=== PATIENT | male | born 1955 | race Caucasian/White ===

== ENCOUNTER 2023-03-03 10:09 | Day surgery (SDC) | payer MEDICARE ==
[~2023-03-03 10:09] MED LIST: LACTATED RINGERS 1,000 ML IV SCH
[2023-03-03 11:32] VITALS: TEMP 97.5
[2023-03-03] MEDS ORDERED: PROPOFOL 10 MG/ML 20 ML VIAL IV ONE (12:25)
--- NOTE | 2023-03-03 12:39 | P.PCN ---
Date of Procedure: 03/03/23 Procedure(s) Performed: BRIEF HISTORY: Patient is a 67-year-old pleasant white male scheduled for an elective colonoscopy as a part of screening for colon cancer. PROCEDURE PERFORMED: Colonoscopy with biopsy. PREOPERATIVE DIAGNOSIS: Screening for colon cancer. IV sedation per Anesthesia. PROCEDURE: After informed consent was obtained, the patient, was brought into the endoscopy unit. IV sedation was administered by Anesthesia under continuous monitoring. Digital rectal examination was normal. Initially the Olympus CF-160 flexible video colonoscope was then inserted in the rectum, gradually advanced into the cecum without any difficulty. Careful examination was performed as the scope was gradually being withdrawn. Ileocecal valve and the appendiceal orifice were visualized and appeared normal. Prep was excellent. Mucosa of the cecum, ascending colon, transverse colon, descending colon, sigmoid colon, and rectum appeared normal. The [place] rectum there were 3 mm and 4 mm polyp removed by cold biopsy scattered sigmoid diverticula cyst. Retroflexion was performed in the rectum and no lesions were seen. The patient tolerated the procedure well. IMPRESSION: 3 mm and 4 mm rectal polyp status post cold biopsy Rest of the colon appeared normal Scattered sigmoid diverticula cyst. RECOMMENDATIONS: Findings of this examination were discussed with the patient as well as his family.. He was advised to follow with the biopsyif the biopsy results adenoma he can have a repeat colonoscopy in 5 years
[2023-03-03 12:43] VITALS: RESP 16
[2023-03-03 12:59] VITALS: BP 121/78; PULSE 68
== END 2023-03-03 13:12 | disposition home or self-care (01) ==
LOC: ORWHC2ENDO 10:09
PROVIDERS: ATTEND Internal Medicine Gastroenterology
DX: Z12.11 Encounter for screening for malignant neoplasm of colon (principal); D12.8 Benign neoplasm of rectum; K57.30 Diverticulosis of large intestine without perforation or abscess without bleeding; I10 Essential (primary) hypertension; D86.9 Sarcoidosis, unspecified; Z79.811 Long term (current) use of aromatase inhibitors; Z79.899 Other long term (current) drug therapy
CPT/HCPCS: 88305; 45380; J2704

== ENCOUNTER 2024-05-31 05:45 | Day surgery (SDC) | payer MEDICARE ==
[2024-05-31] MEDS ORDERED: ALPRAZolam 0.5 MG TAB PO PRN (06:21)
[2024-05-31] MEDS ORDERED: NITROGLYCERIN SL TABS 0.4 MG TAB SUBLINGUAL PRN (06:21)
[2024-05-31] MEDS ORDERED: ALPRAZolam 0.25 MG TAB PO PRN (06:21)
[2024-05-31 06:37] VITALS: RESP 16; TEMP 97.8
[2024-05-31] MEDS: SODIUM CHLORIDE 0.9% 1,000 ML IV ONE (06:38)
[2024-05-31] MEDS: SODIUM CHLORIDE 0.9% 1,000 ML in EMPTY BAG 1 BAG IV SCH (06:39)
[2024-05-31 06:45] LABS: Basophils # (A) 0.1 k/uL (0-0.2); Basophils % (A) 1 %; Eosinophils # (A) 0.4 k/uL (0-0.7); Eosinophils % (A) 6 %; HCT 50.5 % (39.0-53.0); HGB 16.2 gm/dL (13.0-17.5); Lymphocytes # (A) 1.8 k/uL (1.0-4.8); Lymphocytes % (A) 29 %; MCH 29.5 pg (25.0-35.0); MCHC 32.1 g/dL (31.0-37.0); MCV 92.2 fL (80.0-100.0); Mean Platelet Volume 8.4; Monocytes # (A) 0.6 k/uL (0-1.0); Monocytes % (A) 9 %; Neutrophils # (A) 3.1 k/uL (1.3-7.7); Neutrophils % (A) 51 %; Platelet Count 191 k/uL (150-450); RBC 5.48 m/uL (4.30-5.90); RDW 12.4 % (11.5-15.5); WBC 6.1 k/uL (3.8-10.6)
[2024-05-31] MEDS: ASPIRIN 325 MG TAB PO STA (06:50)
[2024-05-31] MEDS: ATORVASTATIN 80 MG TAB PO STA (06:50)
[2024-05-31] MEDS ORDERED: HEPARIN SODIUM,PORCINE (1 ML) 2,500 UNIT in SODIUM CHLORIDE 0.9% 250 ML IRRIGATION PRN (07:00)
[2024-05-31] MEDS ORDERED: HEPARIN SODIUM,PORCINE 10,000 UNIT in SODIUM CHLORIDE 0.9% 1,000 ML IRRIGATION PRN (07:00)
[2024-05-31 07:02] LABS: African American GFR (CKD) >90 (>60 ml/min/1.73 sqM); Anion Gap 7 mmol/L; Blood Urea Nitrogen 16 mg/dL (9-20); Calcium 8.9 mg/dL (8.4-10.2); Carbon Dioxide 22 mmol/L (22-30); Chloride 108 mmol/L (98-107); Glucose 91 mg/dL (74-99); Non-African American GFR(CKD) >90 (>60 ml/min/1.73 sqM); Sodium 137 mmol/L (137-145)
[2024-05-31 07:13] LABS: Potassium 4.2 mmol/L (3.5-5.1)
[2024-05-31] MEDS: MIDAZOLAM 2 MG/2 ML VIAL IVP ONE ×2 (07:35→07:47)
[2024-05-31] MEDS: LIDOCAINE 1% INJ 10MG/ML (20 ML MDV) SQ ONE (07:39)
[2024-05-31] MEDS: VERAPAMIL SYRINGE (5 MG/10 ML) INTRAARTER ONE (07:41)
[2024-05-31] MEDS: IOPAMIDOL-370 100ML BTL INJ ONE (07:49)
[2024-05-31] MEDS ORDERED: RX INFO: IV CONTRAST WAS GIVEN 1 EACH MISC MISCELLANE PRN (07:52)
--- NOTE | 2024-05-31 07:55 | P.PCN ---
Date of Procedure: 05/31/24 Operative Findings: CARDIAC CATHETERIZATION PERFORMING PHYSICIAN: Jah Aguila MD, RPVI PROCEDURE PERFORMED: 1. Selective right and left coronary angiogram 2. Left heart catheterization 3. Ultrasound-guided access of the right radial artery INDICATION: Symptomatic 69 with abnormal myocardial perfusion imaging stress test COMPLICATION: None APPROACH: Right radial artery LEVEL OF SEDATION: Moderate with a sedation length of 12 minutes PROCEDURE DESCRIPTION: After obtaining an informed consent, the patient was brought to cardiac laborer ammunition assembly. Local anesthesia was performed using lidocaine subcutaneously. The right radial artery was cannulated using Seldinger technique, the guidewire passed ea sily, following that we advanced a 5-Maldivian sheath dilator assembly, the wire and dilator were removed and sheath was flushed. Following that, 2 mg of verapamil along with 5000 unit heparin were given. Selective right and left coronary angiogram using a 6-Maldivian JR4 and JL 3.5 catheters. Following that we did left heart catheterization using 6-Maldivian pigtail catheter. The procedure was completed there was no complication. SELECTIVE CORONARY ANGIOGRAM: The right coronary artery: Large-caliber vessel and a dominant vessel with mild to moderate disease involving the midportion appears to be in the range of 40% Left main: Is angiographically normal The left circumflex: Large-caliber vessel nondominant vessel appears to be angiographically normal The left anterior descending artery: Large-caliber vessel with mild disease distally and gives rise into diagonal branches which appears to be normal HEMODYNAMICS: LVEDP was 12 mmHg with no significant gradient across aortic valve CONCLUSION: 1. 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 Normal left-sided filling pressure POSTPROCEDURE MANAGEMENT: Medical treatment
[2024-05-31] MEDS: SODIUM CHLORIDE 0.9% 1,000 ML IV SCH (08:05)
[2024-05-31 11:11] VITALS: PULSE 56
[2024-05-31 11:14] VITALS: BP 119/79
== END 2024-05-31 11:09 | disposition home or self-care (01) ==
LOC: CATHCVL 05:45
PROVIDERS: ATTEND Internal Medicine Interventional Cardiology
DX: I35.9 Nonrheumatic aortic valve disorder, unspecified (principal); I10 Essential (primary) hypertension; E66.9 Obesity, unspecified; L40.9 Psoriasis, unspecified; R00.1 Bradycardia, unspecified; D86.0 Sarcoidosis of lung; R06.02 Shortness of breath; Z68.29 Body mass index [BMI] 29.0-29.9, adult; Z82.49 Family history of ischemic heart disease and other diseases of the circulatory system
CPT/HCPCS: 80048; 85025; 93458; C1769; C1894; J2250; J2003; J1644; Q9967